=== PATIENT | male | born 1945 | race Caucasian/White ===

== ENCOUNTER 2019-11-10 11:55 | Inpatient (IN) | payer MEDICARE, OTHER ==
[~2019-11-10] VITALS: Ht 152.4 cm; Wt 62.1 kg
--- NOTE | 2019-11-10 12:20 | NUR ---
Patient BIB pvt ambulance [facility] for med cl to gps admission. A/Ox2 to self and place. Speech is clear, speaks in complete sentences. Patient is semi-cooperative. Upon assessment patient was refusing care, but upon asking another time patient agreed to care pending to be provided. Respiratory even and unlabored, no cough no sob. No cardiovascular distress noted, denies any cp. Denies any n/v/d. Patient in bed at lowest position, sr upx2, call light within reach. Fall precautions implemented per protocol.
[2019-11-10 12:23] LABS: *BILIRUBIN,URIN NEGATIVE (NEGATIVE); *BLOOD, URINE NEGATIVE (NEGATIVE); *CLARITY,URINE SLIGHTLY CLOUDY (CLEAR); *COLOR,URINE YELLOW (YELLOW); *KETONES,URINE NEGATIVE (NEGATIVE); *UROBILINOGEN,URINE 0.2 E.U./dl (NORMAL); LEUKOCYTE ESTERASE ,URINE NEGATIVE (NEGATIVE); NITRITE, URINE NEGATIVE (NEGATIVE); UGLUCOSE NEGATIVE (NEGATIVE)
--- NOTE | 2019-11-10 12:23 | NUR ---
Patient is coming from [facility].
[2019-11-10 12:24] LABS: BASOPHILS % (AUTO) 0.5 % (0.0-2.0); EOSINOPHILS # (AUTO) 0.1 K/uL (0.0-0.7); HEMATOCRIT 41.6 % (36.7-47.1); HEMOGLOBIN 13.9 g/dL (12.5-16.3); LYMPHOCYTES # (AUTO) 1.6 K/uL (20.0-40.0); LYMPHOCYTES % (AUTO) 23.5 % (20.5-51.5); MEAN CORPUSCULAR HEMOGLOBIN 27.8 uug (23.8-33.4); MEAN CORPUSCULAR HGB CONC 33 g/dL (32.5-36.3); MEAN CORPUSCULAR VOLUME 83.3 fL (73.0-96.2); MONOCYTES # (AUTO) 0.5 K/uL (2.0-10.0); MONOCYTES % (AUTO) 7.1 % (0.0-11.0); NEUTROPHILS # (AUTO) 4.6 K/uL (1.8-8.9); NEUTROPHILS % (AUTO) 67.9 % (38.5-71.5); PLATELET COUNT (AUTO) 212 K/uL (152-348); WHITE BLOOD COUNT (AUTO) 6.7 K/uL (3.6-10.2)
[2019-11-10 12:26] LABS: CARBON DIOXIDE 30 mmol/L (21-32); CHLORIDE 101 mmol/L (98-107); CREATININE 1.1 mg/dL (0.6-1.3); GLUCOSE 91 mg/dL (74-106); POTASSIUM 3.6 mmol/L (3.5-5.1); UREA NITROGEN, BLOOD 13 mg/dL (7-18)
[2019-11-10 12:31] LABS: BACTERIA,URINE NONE SEEN /HPF (NONE SEEN); RBC,URINE 0-3 /HPF (0-3); SQUAMOUS EPITHELIAL CELL,UR NONE SEEN /HPF (NONE SEEN); WBC,URINE 0-3 /HPF (0-3)
[2019-11-10 12:32] LABS: ALANINE AMINOTRANSFERASE 16 U/L (16-63); ALKALINE PHOSPHATASE 87 U/L (50-136); ASPARTATE AMINOTRANSFERASE 17 U/L (15-37); BILIRUBIN,DIRECT 0.2 mg/dL (0.0-0.2); BILIRUBIN,TOTAL 0.5 mg/dL (0.2-1.0); TOTAL PROTEIN, SERUM 7.4 g/dL (6.4-8.2)
[2019-11-10 12:32] LABS: URINE AMORPHOUS PHOSPHATES FEW /HPF
[2019-11-10 12:33] LABS: ACETAMINOPHEN < 2.0 ug/mL (10-30)
[2019-11-10 12:36] LABS: ETHANOL < 3 MG/DL (0-0)
[2019-11-10 12:37] LABS: *AMPHETAMINE, URINE NEGATIVE (NEGATIVE); *BARBITURATE, URINE NEGATIVE (NEGATIVE); *CANNABINOID, URINE POSITIVE (NEGATIVE); *COCCAINE, URINE NEGATIVE (NEGATIVE); *OPIATE, URINE NEGATIVE (NEGATIVE); *PHENCYCLIDINE SCREEN,URINE NEGATIVE (NEGATIVE)
--- NOTE | 2019-11-10 12:44 | NUR ---
Patient has been seen leaving his room multiple times. Instructed patient to remain in his room, but pt continues to go in and out and wander. Nursing diversified crops supervisor notified, no available sitters at this time.
--- NOTE | 2019-11-10 12:51 | NUR ---
Code kathya called on patient d/t his attempt to elope from the facility. Patient tried leaving through the front door entrance of ER.
--- NOTE | 2019-11-10 12:54 | NUR ---
Security at bedside with patient
[2019-11-10] MEDS ORDERED: OLANZAPINE 10 MG VIAL IM ONE ×2 (13:00→13:01)
--- NOTE | 2019-11-10 14:09 | NUR ---
Bed not available at this time per THEODORA Johnston
--- NOTE | 2019-11-10 15:31 | NUR ---
Sonia, sitting at bedside for patient.
--- NOTE | 2019-11-10 18:45 | NUR ---
Report given to THEODORA WHITLEY
--- NOTE | 2019-11-10 19:15 | NUR ---
hand off and SBAR received fr outgoing day shift rn (galo) pt is asleep w/ sitter at bedside pt is at [facility] NAD [address]
--- NOTE | 2019-11-10 19:17 | NUR ---
Report given to THEODORA Kennedy
--- NOTE | 2019-11-10 19:30 | NUR ---
waiting for rollover paperwork Pending transport to floor
--- NOTE | 2019-11-10 19:57 | NUR ---
transported to floor via gurney acc by DENIA pt with all belongings/ all belongings accounted for
[2019-11-10] MEDS ORDERED: BLOOD SUGAR DIAGNOSTIC 1 EACH STRIP VI ONE (20:45)
[2019-11-10] MEDS ORDERED: MAGNESIUM HYDROXIDE 30 ML LIQUID UDC PO PRN (20:45)
[2019-11-10] MEDS ORDERED: MAG HYDROX/AL HYDROX/SIMETH 30 ML LIQUID UDC PO PRN (20:45)
[2019-11-10 21:32] VITALS: BP 139/74
--- NOTE | 2019-11-10 22:00 | NUR ---
GPS ADMISSION NOTE: AT APPROX 1999, ADMITTED 74 YEARS OLD MALE FROM [facility]) TO [facility] ON A 5150 FOR GD. PER HOLD, PATIENT HAS BEEN YELLING AT RESIDENTS AND STAFF, REFUSING TO TAKE HIS PSYCHOTROPIC MEDICATIONS AND HAS BEEN THREATENING 2 FEMALE RESIDENTS. PT DENIED, STATING, "THEY ARE LYING" AND MAKES OTHER PARANOID REFERENCE TO DOCTORS, AND THE "VEINS" HERE "I DON'T TRUST". 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 PT WAS ASLO GIVEN ZYPREXA 10MG IM D/T ATTEMPTING TO ELOPE THE ER AND FOR AGITATION. HOLD WILL BE UP ON 11/13/2019 AT 1030. PT WAS ADMITTED UNDER DR. BRAVO'S CARE. UPON ADMISSION TO MHU, PATIENT WAS NOTED A/O X 1, CONFUSED, POOR HISTORIAN. APPEARS PREOCCUPIED, AND SUSPICIOUS. HE EXPRESSES DESIRE TO LEAVE THE UNIT. FACE TO FACE ASSESSMENT DONE, PATIENT APPEARS TO REFLECT WHAT IS WRITTEN ON THE HOLD. HE DENIES YELLING AT STAFF AND RESIDENTS AT HIS FACILITY. MOOD IS ANXIOUS, AFFECT IS GUARDED, APPEARANCE IS POOR HYGIENE (DIRTY UNKEPT FINGERNAILS) AND BEHAVIOR IS SUSPICIOUS. PT WAS UNABLE TO SIGN ANY OF HIS ADMISSION PAPERS D/T CONFUSED AND AMS. SKIN ASSESSMENT WAS LIMITED D/T PT POOR COMPLIANT; HOWEVER, PATIENT WAS NOTED WITH SWOLLEN LEFT GROIN AREA, POSSIBLE SWOLLEN LEFT TESTICLE. WILL F/U WITH PATIENT MEDICAL HISTORY. PATIENT'S RIGHTS HANDBOOK AND ADVISEMENT WAS GIVEN. PT WAS ORIENTED TO UNIT RULES, PHONE, RESTROOM, AND ROOM MATE. Q15 MIN HEAD CHECKS WAS INITIATED FOR SAFETY AND AWOL PRECAUTION.
[2019-11-11 07:30] VITALS: BP 123/70
[2019-11-11] MEDS: DIVALPROEX SPRINKLE 125 MG CAP.SPRINK PO SCH ×2 (12:13→20:37)
[2019-11-11] MEDS: LORAZEPAM 0.5 MG TABLET PO PRN (13:19)
--- NOTE | 2019-11-11 14:18 | NUR ---
Social Work/Initial Discharge Note: Patient currently resides at [address], [place], [place] ([phone]). Patient will return upon discharge. Patient's daughter/DPOA Alyssia Baez ([phone]) is involved in the patient's treatment plan and care. SW will continue to work with patient, family, and MD to ensure a safe and proper discharge plan.
--- NOTE | 2019-11-11 14:18 | NUR ---
Social Work/Family Contact: SW spoke with patient's daughter/DPJOSE Baez and collected collateral information regarding patient's history and recent behaviors.
--- NOTE | 2019-11-11 14:27 | NUR ---
Social Work/Coordination of Care: Traffic Operator spoke with Marlee web applications administrator at [facility] ([phone]) who confirmed that the patient will be able to return once stable and ready for discharge.
[2019-11-11 20:00] VITALS: BP 98/52
[2019-11-11] MEDS: risperiDONE 0.5 MG TABLET PO SCH (20:37)
[2019-11-11] MEDS: BENZTROPINE MESYLATE 0.5 MG TABLET PO SCH (20:37)
--- NOTE | 2019-11-11 21:48 | NUR ---
Received patient in his room, med compliant but takes his time, paranoid, guarded, isolative, and avoidant. AO x 2. No sign or symptom of resp. distress, no indication of pain or discomfort. Will continue to monitor patient for safety.
[2019-11-12 07:30] VITALS: BP 131/80
[2019-11-12] MEDS: DIVALPROEX SPRINKLE 125 MG CAP.SPRINK PO SCH ×2 (08:30→20:45)
[2019-11-12] MEDS: CYANOCOBALAMIN 1,000 MCG TABLET PO SCH (08:31)
[2019-11-12] MEDS: risperiDONE 0.5 MG TABLET PO SCH ×2 (08:31→20:46)
[2019-11-12] MEDS ORDERED: CYANOCOBALAMIN 100 MCG TABLET PO SCH (09:00)
--- NOTE | 2019-11-12 12:41 | NUR ---
Received patient in bed. Alert but disoriented. Irritable when asked questions. Very confused about environment and plan. Reorientation given multiple times. Later patient noted pacing the halls. At one point getting in a small altercation with another patient sitting in the juliana chair. Frequent, repetitive questions asked and inability to remember where room is. Patient has been medication compliant so far this shift. Continuing to monitor for safety and redirect and reorient as needed. No acute issues at this time.
[2019-11-12 15:18] VITALS: BP 135/87
--- NOTE | 2019-11-12 16:01 | NUR ---
Social Work Individual therapy Note: Rubber Tile Floor Layer met with patient for individual supportive counseling. Patient continues to remain socially withdrawn, however with encouragement by this bid writer, patient agreed to participate in group therapy and engage in a meaningful conversation with this SW. Patient was able to share life history and concerns he has regarding his current situation and hospitalization. Patient shared his love for his daughter and his passion for dogs and children. Rubber Tile Floor Layer provided active listening and positive reinforcement. Rubber Tile Floor Layer will continue to meet with patient and provide ongoing support.
[2019-11-12] MEDS: LORAZEPAM 0.5 MG TABLET PO PRN (16:28)
[2019-11-12 20:00] VITALS: BP 126/77
[2019-11-12] MEDS: BENZTROPINE MESYLATE 0.5 MG TABLET PO SCH (20:46)
--- NOTE | 2019-11-12 21:50 | NUR ---
aaox1 forgetful at times. ambulatory ad hannah. VSS. needs attended. fall precautions maintained. VSS. Compliant with meds. Continent of bowel and bladder. No signs of agitation or restlessness. Patient calm and cooperative.
--- NOTE | 2019-11-13 06:46 | NUR ---
End of shift note: Quiet night. Slept well throughout the night. No acute distress noted. VSS.Continent of bowel and bladder. No BM noted this shift. Hadv 7hrs & 30 minutes of sleep. No agitation nor any behavioral issues noted. Will monitor patient.
[2019-11-13 07:30] VITALS: BP_SYST 112; BP_SYST 144; BP_DIAS 65; BP_DIAS 79
[2019-11-13] MEDS: DIVALPROEX SPRINKLE 125 MG CAP.SPRINK PO SCH ×2 (08:29→20:12)
[2019-11-13] MEDS: risperiDONE 0.5 MG TABLET PO SCH ×2 (08:30→20:12)
[2019-11-13] MEDS: CYANOCOBALAMIN 1,000 MCG TABLET PO SCH (08:30)
[2019-11-13] MEDS: BENZTROPINE MESYLATE 0.5 MG TABLET PO SCH ×2 (08:40→16:10)
[2019-11-13] MEDS: LORAZEPAM 0.5 MG TABLET PO PRN ×2 (11:11→18:07)
--- NOTE | 2019-11-13 11:18 | NUR ---
Social Work Firearms Report ([employer]): Technical Business Analyst completed and submitted a [employer] firearms report for 5150 grave disability certification. A copy of report has been placed in patient chart.
[2019-11-13 15:03] VITALS: BP 115/74
--- NOTE | 2019-11-13 17:44 | NUR ---
GPS: received patient walking in the hallway, patient AOx2-3, denies any SI and HI, patient coud not recall the event why he was here, patient spoke with his daughter on the phone, started to become agitated and pacing, oral PRN was Given and patient was redirected to his room, patient remain confused and needs redirection, shaved patient rae and patient appreciated it
[2019-11-13 20:13] VITALS: BP 137/84
--- NOTE | 2019-11-13 22:18 | NUR ---
RECEIVED PATIENT IN THE HALLWAY. HE IS NOTED A/O X 2 BUT FORGETFUL AT TIMES. HE IS NOTED PACING THE HALLWAY, AND WONDERING AROUND THE UNIT. PT REQUIRED CONSTANT REORIENTATION TO TIME, PLACE, AND SITUATION. NO AGGRESSIVE OR COMBATIVE BX NOTED AT THIS TIME. SPEECH IS DISORGANIZED, AFFECT GUARDED. PATIENT IS ABLE TO COMPLY WITH MEDICATION REGIMENT AT THIS TIME. FOOD AND PO FLUIDS WERE PROVIDED. V/S STABLE. PATIENT IN REASSURED FOR HIS SAFETY. SAFETY AND FALL PRECAUTION IN PLACE. WILL CONTINUE TO MONITOR.
[2019-11-14 08:00] VITALS: BP 135/84
[2019-11-14] MEDS: DIVALPROEX SPRINKLE 125 MG CAP.SPRINK PO SCH ×2 (09:13→20:13)
[2019-11-14] MEDS: CYANOCOBALAMIN 1,000 MCG TABLET PO SCH (09:13)
[2019-11-14] MEDS: risperiDONE 0.5 MG TABLET PO SCH ×2 (09:13→20:13)
[2019-11-14] MEDS: BENZTROPINE MESYLATE 0.5 MG TABLET PO SCH ×2 (09:14→16:32)
[2019-11-14 09:51] VITALS: BP 135/84
[2019-11-14 15:00] VITALS: BP 101/50
[2019-11-14 20:09] VITALS: BP 135/85
--- NOTE | 2019-11-15 06:11 | NUR ---
GPS: Remain calm and cooperative with meds and care.Slept 7:30 hrs throughout the night. No acute distress noted. Continent of bowel and bladder. No agitation nor any behavioral issues noted. Will monitor patient.
[2019-11-15 06:29] LABS: BASOPHILS % (AUTO) 0.6 % (0.0-2.0); EOSINOPHILS # (AUTO) 0.1 K/uL (0.0-0.7); HEMOGLOBIN 12.7 g/dL (12.5-16.3); LYMPHOCYTES # (AUTO) 1.6 K/uL (20.0-40.0); LYMPHOCYTES % (AUTO) 29.7 % (20.5-51.5); MEAN CORPUSCULAR HEMOGLOBIN 27.7 uug (23.8-33.4); MEAN CORPUSCULAR HGB CONC 34 g/dL (32.5-36.3); MEAN CORPUSCULAR VOLUME 82.6 fL (73.0-96.2); MONOCYTES # (AUTO) 0.4 K/uL (2.0-10.0); MONOCYTES % (AUTO) 7.7 % (0.0-11.0); NEUTROPHILS # (AUTO) 3.2 K/uL (1.8-8.9); PLATELET COUNT (AUTO) 162 K/uL (152-348); WHITE BLOOD COUNT (AUTO) 5.3 K/uL (3.6-10.2)
[2019-11-15 06:45] LABS: BILIRUBIN,TOTAL 0.9 mg/dL (0.2-1.0); CREATININE 1.1 mg/dL (0.6-1.3); POTASSIUM 3.9 mmol/L (3.5-5.1); TOTAL PROTEIN, SERUM 6.6 g/dL (6.4-8.2)
[2019-11-15 07:30] VITALS: BP 108/71
[2019-11-15] MEDS: DIVALPROEX SPRINKLE 125 MG CAP.SPRINK PO SCH (08:28)
[2019-11-15] MEDS: CYANOCOBALAMIN 1,000 MCG TABLET PO SCH (08:28)
[2019-11-15] MEDS: BENZTROPINE MESYLATE 0.5 MG TABLET PO SCH ×2 (08:28→17:35)
[2019-11-15] MEDS: risperiDONE 0.5 MG TABLET PO SCH ×2 (08:28→18:49)
--- NOTE | 2019-11-15 09:48 | NUR ---
Received patient standing in doorway of room. Angry and irritable. Much encouragement needed to take medications. Patient pacing in hallway, very confused. Speech unclear and garbled . Reorientation, reassurance and redirection given . Vs are normal. Monitoring for behavior issues, escalation of anger or increase in confusion. Continuing to provide a safe environment.
[2019-11-15] MEDS: LORAZEPAM 0.5 MG TABLET PO PRN ×2 (14:09→22:37)
--- NOTE | 2019-11-15 14:46 | NUR ---
Patient anxious and intrusive. Ativan 0.5 given per order. Constant redirection given to this patient. Continuing to monitor behavior and for safety.
[2019-11-15 15:42] VITALS: BP 133/83
[2019-11-15 20:00] VITALS: BP 132/72
[2019-11-15] MEDS ORDERED: risperiDONE 0.5 MG TABLET PO SCH (21:00)
[2019-11-15] MEDS ORDERED: DIVALPROEX 125 MG TABLET.DR PO SCH (21:00)
--- NOTE | 2019-11-15 22:38 | NUR ---
patient is very agitated and banging on the door. uncooperative with staff.going to other patient room's. ativan 0.5 mg po given for agitation.
[2019-11-16] MEDS: TEMAZEPAM 7.5 MG CAPSULE PO PRN (00:28)
--- NOTE | 2019-11-16 01:05 | NUR ---
Social Work Individual Therapy Note: Events Specialist met with patient today to provide brief individual supportive counseling. Patient presents guarded and withdrawn. Events Specialist encouraged patient to engage in group and the milieu, however, patient refused and did not attend group. Events Specialist prompted patient on the importance of talking and getting to know others, however, patient presented mentally pre-occupied. Patient sated, "Not now I have another problem", but unable to say what when asked. Events Specialist will remain available to patient and continue to provide supportive counseling.
--- NOTE | 2019-11-16 06:45 | NUR ---
GPS: Remain calm and cooperative with meds and care.Slept 2 hrs throughout the night. after restoril 7.5 mg po given.no acute distress noted at this time. Continent of bowel and bladder. No agitation nor any behavioral issues noted. Will monitor patient.
[2019-11-16 07:30] VITALS: BP 132/72
[2019-11-16] MEDS: risperiDONE 0.5 MG TABLET PO SCH ×3 (08:41→17:14)
[2019-11-16] MEDS: CYANOCOBALAMIN 1,000 MCG TABLET PO SCH (08:41)
[2019-11-16] MEDS: BENZTROPINE MESYLATE 0.5 MG TABLET PO SCH ×2 (08:41→17:14)
[2019-11-16] MEDS: DIVALPROEX SPRINKLE 125 MG CAP.SPRINK PO SCH (08:41)
[2019-11-16] MEDS: LORAZEPAM 0.5 MG TABLET PO PRN ×2 (11:03→17:29)
--- NOTE | 2019-11-16 12:08 | NUR ---
Social Work Family Contact: ALANNA received a voicemail from patient's daughter/DPOA Alyssia Nestor requesting updates about the patient's treatment plan. Alyssia stated she has not heard from anyone from the hospital regarding what is going on with the patient. ALANNA returned Alyssia's phone call but unable to reach, left a voicemail for call back.
--- NOTE | 2019-11-16 14:53 | NUR ---
ORDER TO COLLECT URINE, TRIED NOT SUCCESSFULL, WILL TRY AGAIN, AND ENDORSE TO NEXT SHIFT ACCORDINGLY
[2019-11-16 15:29] VITALS: BP 141/96
--- NOTE | 2019-11-16 18:51 | NUR ---
PATIENT WITH UNSTEADY GAIT, PACES IN THE HALLWAY BACK AND FORTH, COMPLIANT WITH MEDS, CONFUSE, ORIENTED AT TIMES, MONITORED FOR SAFETY CLOSELY, HIGH RISK TO FALL, SAFETY PRECAUTIONS ARE IN PLACE
--- NOTE | 2019-11-16 20:00 | NUR ---
RECEIVED PATIENT IN HIS ROOM SITTING IN HIS BED. HE IS NOTED A/O X 1 (NAME ONLY) CONFUSED, DISORGANIZED, FLAT AFFECT, LABILE MOOD. HE IS POOR HISTORIAN, UNABLE TO HAVE A MEANINGFUL CONVERSATION. PATIENT NOTED RESPONDING TO INTERNAL STIMULI. V/S STABLE AT THIS TIME. PATIENT IS REASSURED FOR HIS SAFETY. SAFETY AND FALL PRECAUTION IN PLACE. WILL CONTINUE TO MONITOR.
[2019-11-16 20:29] VITALS: BP 140/82
[2019-11-16] MEDS ORDERED: risperiDONE 1 MG TABLET PO SCH (21:00)
[2019-11-16] MEDS ORDERED: risperiDONE 0.5 MG TABLET PO SCH (21:00)
[2019-11-16 21:05] VITALS: BP 118/70
--- NOTE | 2019-11-16 22:30 | NUR ---
GPS: PATIENT FOUND ON THE FLOOR. AT APPROX 2044,THIS POWER BRAKE OPERATOR FOUND PATIENT SITTING ON THE FLOOR IN HIS ROOM NEXT TO THE YELLOW CHAIR THAT IS LOCATED BY HIS BED. PT WAS HELPED TO A STANDING POSITION THEN TO HIS BED. UPON INTERVIEW, PATIENT WAS UNABLE TO DESCRIBE WHY HE WAS ON THE FLOOR OR IF HE HAD A FALL. HEAD TO TOE ASSESSMENT WAS DONE. NO BRUISES, NO REDNESS, NO SWELLING, NO DEFORMITIES WERE NOTED. PATIENT NOTED CALM AND COOPERATIVE WITH NO CHANGES IN LOC AND IN NO DISTRESS, HE DENIED PAIN, AND NO FACIAL GRIMACE WERE NOTED. V/S: B/P 117/70 MMHG; PULSE 84BPM; O2SAT 99%. UNABLE TO DO ORTHOSTATIC BP D/T PATIENT NOT FOLLOWING PROPER DIRECTIONS. PATIENT WAS THEN PLACE IN A MARLENA CHAIR NEXT TO THE NURSING STATION. AT APPROX. 2110, PARCEL CARRIER WAS NOTIFIED OF PATIENT FOUND ON THE FLOOR IN HIS ROOM. DR BRAVO WAS NOTIFIED AT APPROX. 2111 AND NEW ORDER OBTAINED TO DO A CT BRAIN WITHOUT CONTRAST, TO OBTAINED URINE FOR URINALYSIS AND C&S AND IF NECESSARY, TO DO A STRAIGHT CATH PATIENT WILL PERMIT, TO PLACE PATIENT ON 1:1 SUPERVISION AND TO HOLD RISPERDAL 1MG QHS. ORDERS WERE NOTED. A MESSAGE WAS LEFT TO DR HARMON AT APPROX 2114 TO CALL US BACK. AT APPROX. 2115, A MESSAGE WAS LEFT TO PATIENT'S DAUGHTER MARTÍN TO CALL US BACK. AT 2154, DR HARMON RETURNED CALL TO THIS POWER BRAKE OPERATOR AND HE WAS NOTIFIED OF PATIENT'S FOUND ON FLOOR AND DR. BRAVO'S ORDERS. AT APPROX. 2224, MARTÍN RETUNED CALL TO THIS POWER BRAKE OPERATOR AND SHE WAS ALSO NOTIFIED OF PATIENT FOUND ON THE FLOOR, NEW ORDERS AND RESULTS CT CHRIS WITH NEGATIVE RESULTS. PATIENT IN NO DISTRESS, DENIED PAIN AT THIS TIME AND NO CHANGES IN LOC. CT BRAIN NEGATIVE FOR ACUTE TRAUMA. WILL CONTINUE TO MONITOR.
--- NOTE | 2019-11-16 22:30 | NUR ---
GPS: PATIENT FOUND ON THE FLOOR. AT APPROX 2044
[2019-11-17] MEDS: TEMAZEPAM 7.5 MG CAPSULE PO PRN ×2 (01:12→22:03)
--- NOTE | 2019-11-17 06:57 | NUR ---
UNABLE TO COLLECT URINE SAMPLE, UNABLE TO DO STRAIGHT CATH FOR UA, PATIENT REFUSED AND WAS UNCOOPERATIVE, UNABLE TO REDIRECT. PT ON 1:1. WILL ATTEMPT TO COLLECT URINE LATER. WILL CONTINUE TO MONITOR.
[2019-11-17 07:02] LABS: BASOPHILS % (AUTO) 0.5 % (0.0-2.0); EOSINOPHILS # (AUTO) 0.1 K/uL (0.0-0.7); EOSINOPHILS % (AUTO) 1.8 % (0.0-7.0); HEMATOCRIT 38.2 % (36.7-47.1); HEMOGLOBIN 12.8 g/dL (12.5-16.3); LYMPHOCYTES # (AUTO) 1.5 K/uL (20.0-40.0); LYMPHOCYTES % (AUTO) 27.8 % (20.5-51.5); MEAN CORPUSCULAR HEMOGLOBIN 28.2 uug (23.8-33.4); MEAN CORPUSCULAR HGB CONC 34 g/dL (32.5-36.3); MEAN CORPUSCULAR VOLUME 83.9 fL (73.0-96.2); MONOCYTES # (AUTO) 0.5 K/uL (2.0-10.0); MONOCYTES % (AUTO) 9.2 % (0.0-11.0); NEUTROPHILS # (AUTO) 3.2 K/uL (1.8-8.9); NEUTROPHILS % (AUTO) 60.7 % (38.5-71.5); PLATELET COUNT (AUTO) 159 K/uL (152-348); RED BLOOD CELL COUNT(AUTO) 4.55 MIL/uL (4.06-5.63); WHITE BLOOD COUNT (AUTO) 5.3 K/uL (3.6-10.2)
[2019-11-17 07:15] LABS: CREATININE 0.9 mg/dL (0.6-1.3)
[2019-11-17] MEDS: LORAZEPAM 0.5 MG TABLET PO PRN ×2 (07:37→12:55)
[2019-11-17] MEDS: DIVALPROEX SPRINKLE 125 MG CAP.SPRINK PO SCH (08:05)
[2019-11-17] MEDS: risperiDONE 0.5 MG TABLET PO SCH ×3 (08:05→16:03)
[2019-11-17] MEDS: CYANOCOBALAMIN 1,000 MCG TABLET PO SCH (08:05)
[2019-11-17] MEDS: BENZTROPINE MESYLATE 0.5 MG TABLET PO SCH ×2 (08:05→16:03)
[2019-11-17 10:00] VITALS: BP 118/78
--- NOTE | 2019-11-17 10:25 | NUR ---
GPS: Nursing Notes: Refusing For Picture to be Taken: Patient is confused, impaired judgment, resistant with nursing care, refusing for picture to be taken of sacral area redness at this time, applying Z-Guard cream to affected area, continue to monitor for safety, continue with treatment plan.
--- NOTE | 2019-11-17 10:56 | NUR ---
GPS: Nursing Notes: Thought Disorder: Patient awake and responding to his name, trying to climb over the side rails this am, impaired judgment, poor insight, confused, resistant with nursing care, unsteady gait, disorganized, internally preoccupied, episodes of talking incoherently, unable to formulate a viable plan for self care, assisted with ADL's, constantly redirected and reoriented during shift, continue to monitor for safety, continue with treatment plan.
[2019-11-17] MEDS: ACETAMINOPHEN 325 MG TABLET PO PRN (12:55)
[2019-11-17 16:12] VITALS: BP 137/77
[2019-11-17] MEDS: OXCARBAZEPINE 150 MG TABLET PO SCH (16:39)
[2019-11-17 20:20] VITALS: BP 127/85
[2019-11-17] MEDS ORDERED: OLANZAPINE 2.5 MG TABLET PO SCH (21:00)
--- NOTE | 2019-11-17 21:01 | NUR ---
Received pt in juliana- chair for safety. AAO x1. No acute distress noted. No facial cues for pain noted. Due med given as ordered, tolerated well. Pt noted to be mumbling incoherently. Safety measures maintained. Will continue to monitor.
[2019-11-18 00:42] LABS: *BILIRUBIN,URIN NEGATIVE (NEGATIVE); *BLOOD, URINE NEGATIVE (NEGATIVE); *COLOR,URINE YELLOW (YELLOW); *KETONES,URINE 1+ (NEGATIVE); *UROBILINOGEN,URINE 0.2 E.U./dl (NORMAL); LEUKOCYTE ESTERASE ,URINE NEGATIVE (NEGATIVE); NITRITE, URINE NEGATIVE (NEGATIVE); UGLUCOSE NEGATIVE (NEGATIVE)
[2019-11-18 00:48] LABS: *CLARITY,URINE HAZY (CLEAR)
[2019-11-18 01:01] LABS: RBC,URINE 0-3 /HPF (0-3)
[2019-11-18 01:02] LABS: BACTERIA,URINE NONE SEEN /HPF (NONE SEEN); CALCIUM OXALATE CRYSTALS,UR MODERATE /HPF (NONE SEEN); MUCUS,URINE FEW /LPF (0-FEW); SQUAMOUS EPITHELIAL CELL,UR FEW /HPF (NONE SEEN); URINE AMORPHOUS PHOSPHATES MODERATE /HPF; WBC,URINE 0-3 /HPF (0-3)
[2019-11-18 07:30] VITALS: BP 109/61
[2019-11-18] MEDS: OXCARBAZEPINE 150 MG TABLET PO SCH (08:45)
[2019-11-18] MEDS: CYANOCOBALAMIN 1,000 MCG TABLET PO SCH (08:45)
--- NOTE | 2019-11-18 11:46 | NUR ---
Received patient in bed. VS are stable. Medication compliant. Patient is very confused and disoriented. Gait noted unsteady. Assisted patient to the bathroom but patient did not know what to do when inside. Up to juliana chair at the nurses station for breakfast and for safety.Continuing to reorient patient to the environment. Unable to have any meaningful conversation this am. Will monitor for safety and encourage participation and interaction with a reality based focus. Patient is anxious and restless. Frequent rounding done.
[2019-11-18] MEDS: LORAZEPAM 0.5 MG TABLET PO PRN ×2 (13:27→21:04)
[2019-11-18] MEDS: OXCARBAZEPINE 300 MG TABLET PO SCH (16:42)
[2019-11-18] MEDS ORDERED: OXCARBAZEPINE 150 MG TABLET PO SCH (17:00)
--- NOTE | 2019-11-18 20:00 | NUR ---
RECEIVED PATIENT IN THE HALLWAY SITTING IN A MARLENA CHAIR NEAR THE NURSING STATION. HE IS NOTED A/O X 1 (NAME ONLY) DISORGANIZED SPEECH, FLIGHT OF IDEAS; MOOD IS LABILE, AFFECT IS BLUNTED. PATIENT UNABLE TO HAVE A MEANINGFUL CONVERSATION. V/S STABLE AT THIS TIME. FOOD AND PO FLUIDS GIVEN. SAFETY AND FALL PRECAUTION IN PLACE. WILL CONTINUE TO MONITOR.
[2019-11-18 20:37] VITALS: BP 137/78
[2019-11-18] MEDS ORDERED: OLANZAPINE 2.5 MG TABLET PO SCH (21:00)
[2019-11-18] MEDS ORDERED: OLANZAPINE 5 MG TABLET PO SCH (21:00)
[2019-11-18] MEDS: TEMAZEPAM 7.5 MG CAPSULE PO PRN (22:45)
--- NOTE | 2019-11-18 22:45 | NUR ---
PATIENT NOTED RESTLESS, TALKING TO HIMSELF, FLIGHT OF IDEAS. HE WAS TAKEN TO THE BATHROOM. PT NOTED WALKING WITH UNSTEADY GAIT, REQUIRED ASSISTANCE WITH ADLs. TEMAZEPAM 7.5MG PO PRN WAS GIVEN FOR INSOMNIA. WILL CONTINUE TO MONITOR.
--- NOTE | 2019-11-19 08:43 | NUR ---
Received patient trying to climb out of the bed. Patient is very combative striking at the staff trying to provide help. Refused VS , breakfast and am medications. Patient yelling and cursing at the staff and wont put a shirt on. Calm speech, quiet environment, distraction and encouragement given with minimal response. Continuing to provide safety, and monitoring for further behavior escalation.
[2019-11-19] MEDS: OXCARBAZEPINE 300 MG TABLET PO SCH ×3 (09:00→16:57)
[2019-11-19] MEDS: CYANOCOBALAMIN 1,000 MCG TABLET PO SCH (09:00)
--- NOTE | 2019-11-19 10:21 | NUR ---
Social Work Individual Therapy Note: Basic Combatant Swimmer met with patient today to provide brief individual supportive counseling. Patient presents with labile mood and agitated affect. Sw tried to redirect the patient and encourage to participate in group or assist the patient outside for some sunlight. Patient yelled at this program writer and said, "go away". Patient was hyperverbal and loud. Patient is observed taking off his shirt and being physically aggressive. Basic Combatant Swimmer will remain available to patient and continue to provide supportive counseling as possible and needed.
[2019-11-19] MEDS: LORAZEPAM 0.5 MG TABLET PO PRN ×3 (11:22→20:58)
[2019-11-19 16:00] VITALS: BP 115/57
[2019-11-19 20:22] VITALS: BP 130/88
[2019-11-19] MEDS: OLANZAPINE 2.5 MG TABLET PO SCH (20:40)
[2019-11-19] MEDS: ACETAMINOPHEN 325 MG TABLET PO PRN (20:59)
[2019-11-19] MEDS ORDERED: OLANZAPINE 5 MG TABLET PO SCH (21:00)
[2019-11-19] MEDS: TEMAZEPAM 7.5 MG CAPSULE PO PRN (22:28)
--- NOTE | 2019-11-20 06:41 | NUR ---
PT SLEPT 8 HOURS. PT IN NO ACUTE DISTRESS. PT NEEDS REORIENTATION. SAFETY AND COMFORT PROVIDED. PRESCRIBED MEDICATION GIVEN AND PT TOLERATED IT WELL. ATIVAN GIVEN AT 2057H FOR PT IS RESTLESS. WHEELING OUT HIS KRISTINA-CHAIR IN THE HALLWAY. TYLENOL GIVEN ALSO AT 2058H PER PT SAID HE HAS GENERALIZED PAIN. PT TOLERATED IT WELL. RESTORIL GIVEN AT 2227H PER PT REQUEST. PT TOLERATED IT WELL. ALL NEEDS ARE MET. WILL ENDORSE TO INCOMING NURSE FOR CONTINUITY OF CARE.
--- NOTE | 2019-11-20 08:00 | NUR ---
Received patient in bed, awake and verbally responsive. No signs of distress noted. No SOB. No complain of Pain or discomfort. No SI/HI noted. Will continue to monitor.
[2019-11-20] MEDS ORDERED: OLANZAPINE 5 MG TABLET PO SCH (09:00)
[2019-11-20] MEDS: CYANOCOBALAMIN 1,000 MCG TABLET PO SCH (09:57)
[2019-11-20] MEDS: OXCARBAZEPINE 300 MG TABLET PO SCH ×3 (09:57→16:33)
[2019-11-20] MEDS: OLANZAPINE 2.5 MG TABLET PO SCH ×2 (09:57→20:02)
--- NOTE | 2019-11-20 18:05 | NUR ---
Patient in bed sleeping, No signs of distress. patient with episode of pacing and confusion to the hallway, frequent orientation provided. All medication taken as ordered. safety measures provided. Will endorse to Incoming Nurse.
[2019-11-20 20:00] VITALS: BP 122/81
--- NOTE | 2019-11-20 20:00 | NUR ---
RECEIVED PATIENT IN THE HALLWAY, HE IS NOTED PACING THE HALLWAY. PATIENT CONTINUE CONFUSED, DISORGANIZED SPEECH, UNABLE TO HAVE A MEANINGFUL CONVERSATION, MOOD IS LABILE, AFFECT IS BLUNTED. PT IS SOMEWHAT REDIRECTABLE. V/S STABLE AT THIS TIME. SAFETY AND FALL PRECAUTION IN PLACE. WILL CONTINUE TO MONITOR.
[2019-11-20] MEDS: LORAZEPAM 0.5 MG TABLET PO PRN (21:35)
[2019-11-20] MEDS: TEMAZEPAM 7.5 MG CAPSULE PO PRN (22:46)
--- NOTE | 2019-11-20 22:50 | NUR ---
PATIENT NOTED PACING THE HALLWAY, WONDERING THE UNIT. UNABLE TO STAY IN HIS BED. TEMAZEPAM 7.5 MG PO PRN WAS GIVEN. WILL CONTINUE TO MONITOR.
--- NOTE | 2019-11-20 23:55 | NUR ---
PATIENT NOTED SLEEPING COMFORTABLE IN HIS ROOM. FALL AND SAFETY PRECAUTION CONTINUE IN PLACE.
[2019-11-21 07:30] VITALS: BP 117/85
[2019-11-21] MEDS: OLANZAPINE 2.5 MG TABLET PO SCH ×2 (08:37→20:02)
[2019-11-21] MEDS: OXCARBAZEPINE 300 MG TABLET PO SCH ×3 (08:37→17:31)
[2019-11-21] MEDS: CYANOCOBALAMIN 1,000 MCG TABLET PO SCH (08:37)
[2019-11-21 16:00] VITALS: BP 145/82
--- NOTE | 2019-11-21 19:45 | NUR ---
Patient restless and walking through the hallway and getting in other patient's rooms.Re-oriented the patient to his own room,No agitative behavior noted. Patient still has difficulty following commands. Will contiue to monitor closely
[2019-11-21 20:00] VITALS: BP 133/99
[2019-11-21] MEDS: TEMAZEPAM 7.5 MG CAPSULE PO PRN (21:19)
[2019-11-21] MEDS: LORAZEPAM 0.5 MG TABLET PO PRN (23:17)
--- NOTE | 2019-11-22 07:11 | NUR ---
PRN medications given , still was awake and restless during the shift. Slept for only 45 minutes .
[2019-11-22 07:30] VITALS: BP 125/73
[2019-11-22] MEDS: OXCARBAZEPINE 300 MG TABLET PO SCH ×3 (08:12→16:18)
[2019-11-22] MEDS: CYANOCOBALAMIN 1,000 MCG TABLET PO SCH (08:12)
[2019-11-22] MEDS: OLANZAPINE 2.5 MG TABLET PO SCH ×2 (08:12→20:49)
--- NOTE | 2019-11-22 08:49 | NUR ---
Received patient in a juliana chair at the nurses station. Completely awake, despite only sleeping 45 min last night. Patient is confused and having visual hallucinations. Unable to have any meaningful conversation. Patient is medication compliant this am, but getting increasingly agitated and irritable. Plan to assist patient with ambulation and encourage use of the bathroom. Continuing to reorient to the environment and monitor for safety.
[2019-11-22] MEDS: LORAZEPAM 0.5 MG TABLET PO PRN (13:49)
--- NOTE | 2019-11-22 14:08 | NUR ---
Patient trying to climb out of chair. Continuously banging on the table. Distraction attempts made, took patient outside, walked patient, took to the bathroom. Patient still restless and agitated, calling people names. Medicated patient with a PRN and providing a calm environment to encourage some rest. Monitoring for safety.
[2019-11-22 16:00] VITALS: BP 130/74
--- NOTE | 2019-11-22 20:00 | NUR ---
PATIENT RECEIVED INTO CARE, SITTING UP IN CHAIR IN HALLWAY. PATIENT IS ALERT/ORIENTED X1 WITH COMPLAINTS OF PAIN OR DISCOMFORT AT THIS TIME. ALL SAFETY AND FALL PRECAUTION MEASURES ARE IN PLACE. WILL CONTINUE TO MONITOR AND ASSESS.
[2019-11-22 20:41] VITALS: BP 167/68
[2019-11-22] MEDS: TEMAZEPAM 7.5 MG CAPSULE PO PRN (23:12)
--- NOTE | 2019-11-23 01:30 | NUR ---
PATIENT BANGING ON BED RAILS AND ATTEMPTING TO GET OUT OF BED. ATTEMPTS AT REDIRECTION ARE MET WITH YELLING AND CURSING. PATIENT PLACED IN CHAIR AND IS IN HALLWAY FOR DIRECT OBSERVATION AND TO AVOID DISTURBING ROOMMATE.
[2019-11-23 07:30] VITALS: BP 145/68
[2019-11-23] MEDS: OXCARBAZEPINE 300 MG TABLET PO SCH ×3 (09:00→17:00)
[2019-11-23] MEDS: CYANOCOBALAMIN 1,000 MCG TABLET PO SCH (09:00)
--- NOTE | 2019-11-23 10:36 | NUR ---
Social Work Individual Therapy Note: Automotive Sales Executive met with patient today to provide brief individual supportive counseling. Patient presents with disorganized thought process and is unable to engage in a meaningful conversation. SW attempted to encourage patient to engage in a conversation and participate in group. Patient was not very responsive and stared blankly at this conventional underwriter and repeated, "what is this?". Automotive Sales Executive will remain available to patient and continue to provide supportive counseling as possible and needed.
--- NOTE | 2019-11-23 10:49 | NUR ---
Social Work Family Contact: Process Maintenance Technician received a call from patient's ex-, Kiara ([phone]) and stated that her daughter, Ca messaged her to give this social media coordinator a call for updates on the patient status and discharge plans. Process Maintenance Technician informed Kiara that the patient will be discharged to a halfway facility- [facility] ([phone]) before returning to his Assisted Living -[facility] ([phone]). Kiara informed this that Ca is very overwhelmed at the moment and she cannot stay "on top" of everything. This advertising copy writer stated that we have been trying to get in touch with Ca however we have the wrong phone number, The correct number given by Kiara is ([phone]) and she stated she works from 10am-7pm.
[2019-11-23] MEDS: OLANZAPINE 2.5 MG TABLET PO SCH ×3 (13:00→22:05)
[2019-11-23] MEDS ORDERED: HALOPERIDOL LACTATE 5 MG/1 ML VIAL IM ONE (13:45)
[2019-11-23] MEDS ORDERED: BENZTROPINE MESYLATE 2 MG/2 ML AMPUL IM ONE (13:45)
[2019-11-23] MEDS ORDERED: LORAZEPAM 2 MG/1 ML VIAL IM ONE (13:45)
--- NOTE | 2019-11-23 13:58 | NUR ---
Pt received this morning resting in bed, assessed, no acute distress, no pain. Poor night sleep reported, determined best to let Pt sleep. Pt woke for lunch, refused all PO medications. Pt confused, aggressive, and combative towards staff. Pt assisted to bathroom x2 assist, returned to bed, undressed in bed, threw diaper, unable to reason with Pt. MD made aware, new orders received, IM medications administered with security present. No apparent intent to harm self, no SI. Will continue to monitor Pt for safety.
[2019-11-23 15:18] VITALS: BP 144/91
--- NOTE | 2019-11-23 19:50 | NUR ---
RECEIVED PATIENT SITTING ON THE RECLINING CHAIR. PATIENT ALERT BUT CONFUSED, PATIENT WAS TALKING TO SELF. PATIENT DENIES PAIN AT THIS TIME. PATIENT COOPERATIVE WITH MEDICATIONS BUT YELLS AND SCREAMS WHEN GIVING NURSING CARE.
[2019-11-23 20:00] VITALS: BP 108/82
--- NOTE | 2019-11-23 22:35 | NUR ---
PATIENT WAS WHEELED TO THE ROOM TO GIVE NURSING CARE, CHANGED PATIENT WENT PAD, AND PUT NEW PAJAMAS. PATIENT RESISTIVE WITH CARE, PATIENT BECOME COMBATIVE, REFUSED TO STAY IN BED, PATIENT DIAPER PADS WAS CHANGED, AND PLACE PATIENT BACK TO RECLINING CHAIR. PATIENT HALLUCINATING, CALL HIS SISTER NAME. PATIENT WAS TRIED TO REDICT BEHAVIOR BUT NOT EFFECTIVE. CONT TO MONITOR.
[2019-11-24 08:00] VITALS: BP 124/89
[2019-11-24] MEDS: OXCARBAZEPINE 300 MG TABLET PO SCH ×3 (10:34→17:24)
[2019-11-24] MEDS: CYANOCOBALAMIN 1,000 MCG TABLET PO SCH ×2 (10:34→10:42)
[2019-11-24] MEDS: OLANZAPINE 2.5 MG TABLET PO SCH ×3 (10:34→17:24)
[2019-11-24 10:36] LABS: BASOPHILS # (AUTO) 0.1 K/uL (0.0-8.0); BASOPHILS % (AUTO) 0.8 % (0.0-2.0); EOSINOPHILS # (AUTO) 0.1 K/uL (0.0-0.7); HEMATOCRIT 44.4 % (36.7-47.1); HEMOGLOBIN 14.7 g/dL (12.5-16.3); LYMPHOCYTES # (AUTO) 1.6 K/uL (20.0-40.0); LYMPHOCYTES % (AUTO) 23.1 % (20.5-51.5); MEAN CORPUSCULAR HEMOGLOBIN 27.7 uug (23.8-33.4); MEAN CORPUSCULAR HGB CONC 33 g/dL (32.5-36.3); MEAN CORPUSCULAR VOLUME 83.5 fL (73.0-96.2); MONOCYTES # (AUTO) 0.5 K/uL (2.0-10.0); MONOCYTES % (AUTO) 7.6 % (0.0-11.0); NEUTROPHILS # (AUTO) 4.6 K/uL (1.8-8.9); NEUTROPHILS % (AUTO) 66.5 % (38.5-71.5); PLATELET COUNT (AUTO) 186 K/uL (152-348); RED BLOOD CELL COUNT(AUTO) 5.31 MIL/uL (4.06-5.63); WHITE BLOOD COUNT (AUTO) 6.9 K/uL (3.6-10.2)
[2019-11-24 10:47] LABS: CREATININE 1.1 mg/dL (0.6-1.3); POTASSIUM 4.7 mmol/L (3.5-5.1)
[2019-11-24 10:53] LABS: BILIRUBIN,TOTAL 0.5 mg/dL (0.2-1.0); MAGNESIUM 2.1 mg/dL (1.8-2.4); TOTAL PROTEIN, SERUM 7.9 g/dL (6.4-8.2)
--- NOTE | 2019-11-24 13:23 | NUR ---
Received patient in juliana chair this am. Sleeping. Upon waking up patient begun getting loud and angry.Refused medications. Pushed nurses hand away when trying to assist patient with eating. Patient is very confused and having visual hallucination. Also paranoid and restless. Continuing to reorient patient to the environment. Doctor aware of behavior and orders received for lab work. Doctor made aware of the results. Patient continues to be restless , monitoring closely for safety. No acute distress noted at this time
[2019-11-24 16:00] VITALS: BP 123/73
[2019-11-24 20:00] VITALS: BP 134/85
[2019-11-24] MEDS ORDERED: OLANZAPINE 2.5 MG TABLET PO SCH (21:00)
[2019-11-24] MEDS ORDERED: OLANZAPINE 5 MG TABLET PO SCH (21:00)
[2019-11-24] MEDS: ACETAMINOPHEN 325 MG TABLET PO PRN (21:22)
[2019-11-25] MEDS: TEMAZEPAM 7.5 MG CAPSULE PO PRN ×2 (00:11→01:36)
--- NOTE | 2019-11-25 01:58 | NUR ---
PATIENT FIRST DOSE OF RESTORIL WAS NOT EFFECTIVE, OFFER THE REPEAT X1 RESTORIL BUT REFUSED, PATIENT AGITATED.
--- NOTE | 2019-11-25 06:07 | NUR ---
PATIENT ALERT BUT WITH CONFUSION DUE TO HEALTH CONDITION. PATIENT WAS AWAKE ALL NIGHT, PATIENT REFUSED TO STAY IN BED, CLIMBS OUT OF BED AND GETS AGITATED WHEN TRIED TO REDIRECT BEHAVIOR. PATIENT WAS KEPT AND CLEAN, CONT TO MONITOR.
[2019-11-25 07:30] VITALS: BP 118/88
[2019-11-25] MEDS: OLANZAPINE 2.5 MG TABLET PO SCH ×2 (08:45→13:00)
[2019-11-25] MEDS: OXCARBAZEPINE 300 MG TABLET PO SCH ×3 (08:45→17:23)
[2019-11-25] MEDS: CYANOCOBALAMIN 1,000 MCG TABLET PO SCH (08:47)
--- NOTE | 2019-11-25 14:33 | NUR ---
Patient slept a few hours this morning but is now awake, angry, combative and confused. Unable to reorient to environment despite multiple attempts. Patient yelling at staff telling the nurse " shut the fuck up" and taking cloths off. Trying to climb out of juliana chair. Patent put close to nurses station for safety. Continuing to monitor for safety. Also refused afternoon medication. MD aware.
[2019-11-25 16:00] VITALS: BP 141/80
[2019-11-25] MEDS: HALOPERIDOL LACTATE 10 MG/5 ML ORAL SOLUTION UDC PO SCH ×2 (17:00→17:23)
[2019-11-25] MEDS ORDERED: TEMAZEPAM 7.5 MG CAPSULE PO PRN (17:00)
[2019-11-25] MEDS: BENZTROPINE MESYLATE 0.5 MG TABLET PO SCH (17:23)
[2019-11-25 20:00] VITALS: BP 156/93
[2019-11-25] MEDS: LORAZEPAM 1 MG TABLET PO PRN ×2 (22:08→23:32)
[2019-11-26] MEDS: TEMAZEPAM 15 MG CAPSULE PO PRN ×2 (01:42→01:59)
--- NOTE | 2019-11-26 01:52 | NUR ---
GPS: Pt.remains awake at this time. Restless,confused,disoriented and disorganized. Frequent re-direction provided by staff prn. Refused Restoril 15 mg PO for insomnia despite numerous attempts by staff. Ativan 1mg PO was given few hrs. ago for increased anxiety/agitation with minimal effect. Quiet environment provided to facilitate sleep. Fall precautions observed.
--- NOTE | 2019-11-26 01:59 | NUR ---
GPS: Pt.took Restoril 15mg PO at this time for insomnia after another attempt by staff. Will monitor effectiveness.
[2019-11-26 07:30] VITALS: BP 141/87
[2019-11-26] MEDS: HALOPERIDOL LACTATE 10 MG/5 ML ORAL SOLUTION UDC PO SCH ×2 (09:36→17:00)
[2019-11-26] MEDS: OXCARBAZEPINE 300 MG TABLET PO SCH (09:36)
[2019-11-26] MEDS: CYANOCOBALAMIN 1,000 MCG TABLET PO SCH (09:37)
[2019-11-26] MEDS: BENZTROPINE MESYLATE 0.5 MG TABLET PO SCH ×2 (09:37→17:00)
--- NOTE | 2019-11-26 11:30 | NUR ---
Social Work Individual Therapy Note: Curer Foam Rubber met with patient today to provide brief individual supportive counseling. Patient continues to remain socially withdrawn and unable to engage in a meaningful conversation. Patient presents with lethargic affect and congruent mood. SW attempted to encourage patient to share his needs and join outside group, however, patient is unable to engage appropriately. Curer Foam Rubber will remain available to patient and continue to provide supportive counseling as possible and needed.
[2019-11-26 16:00] VITALS: BP 147/73
[2019-11-26] MEDS: OXCARBAZEPINE 150 MG TABLET PO SCH (17:00)
--- NOTE | 2019-11-26 18:29 | NUR ---
Gps/Policewoman- Patient sleepy, arousable, yells and gets agitated/angry when awakened to eat and take fluids.meds. re -offered, refused,
--- NOTE | 2019-11-26 18:53 | NUR ---
Gps/Turkey Egg Gatherer- Taken to bathroom to void, no results. Offered fluid, pudding,juice , refused., irritable, yells at the staff providing his care. Noted occ. dry coughing this pm , w/c subsided . Dr High called this pm, to check on patient status , informed patient refusing to eat , gets irritable when staff tries to assist him with pm care.Infused refused, pm meds.
[2019-11-26] MEDS: TEMAZEPAM 15 MG CAPSULE PO SCH ×2 (20:00→21:46)
[2019-11-26] MEDS: HALOPERIDOL 5 MG TABLET PO SCH ×2 (20:00→21:45)
[2019-11-26 20:21] VITALS: BP 144/94
[2019-11-27 07:30] VITALS: BP 128/66
[2019-11-27] MEDS: OXCARBAZEPINE 150 MG TABLET PO SCH ×2 (10:03→16:14)
[2019-11-27] MEDS: HALOPERIDOL LACTATE 10 MG/5 ML ORAL SOLUTION UDC PO SCH ×4 (10:03→21:50)
[2019-11-27] MEDS: BENZTROPINE MESYLATE 0.5 MG TABLET PO SCH ×2 (10:03→16:14)
[2019-11-27] MEDS: CYANOCOBALAMIN 1,000 MCG TABLET PO SCH (10:04)
--- NOTE | 2019-11-27 13:54 | NUR ---
Gps/Installer Soft Top-Sliding from his juliana-chair, agitated, redirected,, monitored safety, confused, poor safety judgement, monitored needs. Adequate fluid intake
[2019-11-27] MEDS: TEMAZEPAM 15 MG CAPSULE PO SCH (20:00)
[2019-11-27] MEDS: LORAZEPAM 1 MG TABLET PO PRN (23:49)
[2019-11-28] MEDS: Z GUARD REMEDY PASTE 57 GM TUBE TOP PRN (06:45)
[2019-11-28 07:30] VITALS: BP 139/82
[2019-11-28] MEDS: CYANOCOBALAMIN 1,000 MCG TABLET PO SCH (09:00)
[2019-11-28] MEDS: OXCARBAZEPINE 150 MG TABLET PO SCH (09:00)
[2019-11-28] MEDS: BENZTROPINE MESYLATE 0.5 MG TABLET PO SCH ×2 (09:00→17:00)
[2019-11-28] MEDS: HALOPERIDOL LACTATE 10 MG/5 ML ORAL SOLUTION UDC PO SCH ×4 (09:00→20:14)
--- NOTE | 2019-11-28 12:37 | NUR ---
GPS: Nursing Notes: Thought Disorder: Patient awake and responding to his name, uncooperative with nursing care, resistant with nursing care, loud and pressured speech, poor appetite, refusing to eat, refusing medications this am, poor anger management, gets easily irritable when redirected, forgetful, confused, disoriented, poor insight, unable to formulate a viable plan for self care, paranoid behavior, internally preoccupied, episodes of talking incoherently, episodes of trying to strike out when assisting him with ADL's, continue with treatment plan.
[2019-11-28 16:00] VITALS: BP 143/71
[2019-11-28] MEDS: TEMAZEPAM 15 MG CAPSULE PO SCH (20:15)
[2019-11-28 20:43] VITALS: BP 167/80
[2019-11-28] MEDS: LORAZEPAM 1 MG TABLET PO PRN (22:13)
--- NOTE | 2019-11-28 22:13 | NUR ---
Pt given ativan PO PRN, still awake/ agitated despite of temazepam and haldol given. Pt took medications with orange juice.
--- NOTE | 2019-11-29 06:05 | NUR ---
Pt awake all. Was talking to self most of the night. Pt had haldol, restoril and ativan during shift. Addendum: 11/29/19 at 0610 by MERI SCOTT RN Awake all night.
--- NOTE | 2019-11-29 06:54 | NUR ---
Shower given last night.
[2019-11-29 07:30] VITALS: BP 132/83
[2019-11-29] MEDS: BENZTROPINE MESYLATE 0.5 MG TABLET PO SCH ×2 (08:37→16:36)
[2019-11-29] MEDS: HALOPERIDOL LACTATE 10 MG/5 ML ORAL SOLUTION UDC PO SCH ×2 (08:37→16:36)
[2019-11-29] MEDS: CYANOCOBALAMIN 1,000 MCG TABLET PO SCH (08:37)
--- NOTE | 2019-11-29 14:26 | NUR ---
GPS: Nursing Notes: Thought Disorder: Patient awake and responding to his name, confused, disoriented, impaired judgment, talking incoherently, gets easily irritable when redirected, poor anger management, verbal abusive toward staff, loud and angry affect, stated "You are trash... Asshole..", resistant with nursing care, disrobing in the hallway, gets easily irritable when trying to put a T-shirt on him because he is half naked on the hallway, trying to strike out at staff, unable to formulate a viable plan for self care, needs a lot prompting to be compliant with his medications, continue with treatment plan.
[2019-11-29 16:00] VITALS: BP 136/78
[2019-11-29 20:00] VITALS: BP 137/87
[2019-11-29] MEDS: QUETIAPINE FUMARATE 25 MG TABLET PO SCH ×2 (20:09→21:02)
[2019-11-29] MEDS: QUETIAPINE FUMARATE 25 MG TABLET PO PRN (20:18)
--- NOTE | 2019-11-29 20:45 | NUR ---
GPS: Pt.took meds.earlier without any resistance from staff. Calm,cooperative without any agitation noted. Remains confused,disoriented and disorganized. Fluids and snacks were given and mariela.well. Fall precautions observed. Re-directed prn.
[2019-11-29] MEDS ORDERED: QUETIAPINE FUMARATE 25 MG TABLET PO SCH (21:00)
[2019-11-29] MEDS: Z GUARD REMEDY PASTE 57 GM TUBE TOP PRN (23:39)
--- NOTE | 2019-11-30 05:48 | NUR ---
GPS: Slept 5 1/2 hrs.last night. Now awake and attempting to get out of bed. At high risk for falls due to poor safety awareness. Re-directed frequently. Bed alarm on for safety. Slightly combative and resistant during incontinence care. Poor insight to present situation. Will continue to monitor.
[2019-11-30] MEDS: Z GUARD REMEDY PASTE 57 GM TUBE TOP PRN ×2 (05:58→20:55)
[2019-11-30 07:30] VITALS: BP 133/83
[2019-11-30 07:57] LABS: BASOPHILS # (AUTO) 0.1 K/uL (0.0-8.0); EOSINOPHILS # (AUTO) 0.1 K/uL (0.0-0.7); EOSINOPHILS % (AUTO) 1.4 % (0.0-7.0); MONOCYTES # (AUTO) 0.7 K/uL (2.0-10.0)
[2019-11-30 08:08] LABS: BASOPHILS % (AUTO) 0.7 % (0.0-2.0); HEMATOCRIT 44.8 % (36.7-47.1); LYMPHOCYTES # (AUTO) 1.7 K/uL (20.0-40.0); MEAN CORPUSCULAR HGB CONC 34 g/dL (32.5-36.3); MEAN CORPUSCULAR VOLUME 83.8 fL (73.0-96.2); MONOCYTES % (AUTO) 7.6 % (0.0-11.0); NEUTROPHILS # (AUTO) 6.6 K/uL (1.8-8.9); NEUTROPHILS % (AUTO) 72.3 % (38.5-71.5); PLATELET COUNT (AUTO) 191 K/uL (152-348); RED BLOOD CELL COUNT(AUTO) 5.35 MIL/uL (4.06-5.63)
[2019-11-30 08:09] LABS: WHITE BLOOD COUNT (AUTO) 9.2 K/uL (3.6-10.2)
[2019-11-30 08:15] LABS: BILIRUBIN,TOTAL 0.7 mg/dL (0.2-1.0); CREATININE 1.3 mg/dL (0.6-1.3); POTASSIUM 3.6 mmol/L (3.5-5.1); TOTAL PROTEIN, SERUM 7.9 g/dL (6.4-8.2)
[2019-11-30] MEDS: CYANOCOBALAMIN 1,000 MCG TABLET PO SCH (08:51)
[2019-11-30] MEDS: BENZTROPINE MESYLATE 0.5 MG TABLET PO SCH ×2 (08:51→16:04)
[2019-11-30] MEDS ORDERED: HALOPERIDOL LACTATE 10 MG/5 ML ORAL SOLUTION UDC PO SCH (09:00)
[2019-11-30] MEDS ORDERED: HALOPERIDOL 2 MG TABLET PO SCH (09:00)
--- NOTE | 2019-11-30 11:00 | NUR ---
Social Work Brief Substance Abuse Intervention: Patient was provided with a brief substance abuse intervention and provided with the [facility] Substance Abuse Self-helpline ([facility]) ([phone]), [facility] [address] [place] [address] ([phone]), [address] [place] [address] ([phone]).
[2019-11-30] MEDS ORDERED: IV D5 1/2 NS 1000 ML 1,000 ML IV ONE (12:15)
[2019-11-30] MEDS: QUETIAPINE FUMARATE 25 MG TABLET PO SCH ×3 (13:36→20:03)
[2019-11-30] MEDS: HALOPERIDOL LACTATE 10 MG/5 ML ORAL SOLUTION UDC PO SCH ×2 (13:36→16:05)
[2019-11-30 15:33] VITALS: BP 119/91
[2019-11-30] MEDS: LORAZEPAM 1 MG TABLET PO PRN (21:36)
[2019-11-30 22:00] VITALS: BP 125/90
[2019-11-30] MEDS: QUETIAPINE FUMARATE 25 MG TABLET PO PRN (23:14)
--- NOTE | 2019-12-01 06:42 | NUR ---
GPS: Pt.slept 6 hours last night. Incontinence care just rendered. Less resistant to care. Fall precautions observed. Will continue to monitor.
[2019-12-01 07:59] VITALS: BP 119/68
[2019-12-01] MEDS: CYANOCOBALAMIN 1,000 MCG TABLET PO SCH (09:33)
[2019-12-01] MEDS: HALOPERIDOL LACTATE 10 MG/5 ML ORAL SOLUTION UDC PO SCH (09:33)
[2019-12-01] MEDS: BENZTROPINE MESYLATE 0.5 MG TABLET PO SCH ×2 (09:33→17:06)
[2019-12-01] MEDS: QUETIAPINE FUMARATE 25 MG TABLET PO SCH ×5 (09:33→20:56)
[2019-12-01 19:49] VITALS: BP 129/97
--- NOTE | 2019-12-02 01:27 | NUR ---
GPS: Pt.noted to be awake now and attempting to get out of bed. Frequent re-direction provided. Has poor safety awareness. Anxious and refusing meds when offered and refusing to open his mouth despite numerous attempts. Refusing liquids also at this time. Will continue to monitor.
[2019-12-02] MEDS: LORAZEPAM 1 MG TABLET PO PRN (01:30)
[2019-12-02] MEDS: Z GUARD REMEDY PASTE 57 GM TUBE TOP PRN (06:30)
--- NOTE | 2019-12-02 06:41 | NUR ---
GPS: Pt.slept for only 3 1/2 hrs.last night. Noted to be talking to self most of the night with intermittent episodes of trying to climb out of bed. Re-directed prn. Less combative/resistant during incontinence care earlier. Will continue to monitor.
[2019-12-02 07:30] VITALS: BP 125/74
--- NOTE | 2019-12-02 08:20 | NUR ---
Social Work Discharge Note: Patient will be discharged back to [facility], [facility] [address] [place] [address] ([phone]) via ambulance. Patient will be transported by ambulance at 12pm. Spoke with Marlo partner marketing manager at the facility who states they are ready to accept the patient today. Patient will follow-up at the facility with Dr. Finch Temporary Data Entry Clerk and Dr. High Psychiatrist. Patient is alert and oriented times 2, denies suicidal or homicidal ideation, and is aware and agreeable with discharge plans. Patient presents with normal mood and congruent affect. Patient is unable to plan for self-care at this time, however, is willing to accept care provided at the facility. Patients daughter, Ca Baez ([phone]) is made aware and is agreeable with discharge plans. Patient was provided with a brief substance abuse intervention and provided with the [facility] Substance Abuse Self-helpline ([facility]) ([phone]), [facility] [address] [place] [address] ([phone]), [facility] [address] [facility] [place] [address] ([phone]).
[2019-12-02] MEDS: CYANOCOBALAMIN 1,000 MCG TABLET PO SCH (08:26)
[2019-12-02] MEDS: QUETIAPINE FUMARATE 25 MG TABLET PO SCH ×2 (08:26→13:08)
[2019-12-02] MEDS: BENZTROPINE MESYLATE 0.5 MG TABLET PO SCH (08:26)
--- NOTE | 2019-12-02 14:34 | NUR ---
Patient is being discharged to [facility]. VS are stable, mental status is at baseline. Pt is A/O x 1. No agitation, no distress. Report called to THEODORA Vail. Pt's daughter Ca Baez is aware of discharge. All belongings returned
[2019-12-02] MEDS ORDERED: QUETIAPINE FUMARATE 25 MG TABLET PO SCH (21:00)
== END 2019-12-02 14:37 | DRG 885 ==
LOC: ER 11:55 → GPS 19:50
PROVIDERS: ADMIT Psychiatry & Neurology Psychosomatic Medicine; ATTEND Hospitalist
DX: F31.9 Bipolar disorder, unspecified (principal); F01.50 Vascular dementia, unspecified severity, without behavioral disturbance, psychotic disturbance, mood disturbance, and anxiety; N17.9 Acute kidney failure, unspecified; G30.9 Alzheimer's disease, unspecified; F02.80 Dementia in other diseases classified elsewhere, unspecified severity, without behavioral disturbance, psychotic disturbance, mood disturbance, and anxiety; F12.10 Cannabis abuse, uncomplicated; G40.909 Epilepsy, unspecified, not intractable, without status epilepticus; E55.9 Vitamin D deficiency, unspecified; Z91.19 Patient's noncompliance with other medical treatment and regimen; Z87.828 Personal history of other (healed) physical injury and trauma; Z79.899 Other long term (current) drug therapy; Z68.28 Body mass index [BMI] 28.0-28.9, adult; E66.9 Obesity, unspecified
CPT/HCPCS: 36415; 70450; 80164; 80307; 83735; 85025; 87086; 93005; A4663; G0480; G0480-TC; J0515; J1630; J2060; J2358; J3490